=== PATIENT | male | born 1970 | race Caucasian/White ===

== ENCOUNTER 2020-11-08 15:34 | Emergency (ER) | payer OTHER, SELFPAY ==
--- NOTE | 2020-11-08 15:38 | ED.SKABFB ---
HPI - Skin/Abscess/Foreign Bdy General Chief complaint: Skin/Abscess/Foreign Body Stated complaint: spider bite left leg Time Seen by Provider: 11/08/20 15:50 Source: patient and RN notes reviewed Mode of arrival: ambulatory Limitations: no limitations History of Present Illness HPI narrative: 50-year-old male presents the concern for possible spider bite on the of his right leg. Reports he noticed a bump that was tender this afternoon. Reports it has become less red throughout the day. Denies any known contact with the spider or insect. Denies any drainage. Denies any treatment or intervention. Denies fever, body aches, malaise. MD complaint: abscess/boil Related Data Allergies Allergy/AdvReac Type Severity Reaction Status Date / Time ibuprofen Allergy Hives Verified 11/08/20 15:51 Review of Systems Review of Systems: Narrative: CONSTITUTIONAL: Denies malaise, chills, sweats, or fever. SKIN: Reports red bump on the back of his right leg MUSCULOSKELETAL: Denies muscle skeletal pain or myalgia. All systems reviewed & are unremarkable except as noted in HPI and below PMFSH Comments At time of signature, agree with nursing past medical, surgical, social and family history. There is no relevant family history pertinent to the presenting complaint Exam Narrative: Exam Narrative: GENERAL: Well-appearing, well-nourished, and in no acute distress. HEAD: Normocephalic, atraumatic. EYES: PERRLA, conjunctivae clear, and EOMI. ENT: Mucous membranes moist. Oropharynx without edema, erythema or lesions. NECK: Supple. No lymphadenopathy CHEST: Clear to auscultation. No respiratory distress. HEART: Regular rate and rhythm. SKIN: Warm, dry. Erythematous papule with white center noted to the posterior right thigh less than 0.5 cm, surrounded by approximately 1 cm diameter of erythema without edema or induration NEURO: Alert and oriented x3. PSYCH: Normal mood and affect Course Course Emergency Course: Patient is aware of diagnosis, understands and agrees to treatment plan. Anticipatory guidance given. Patient agrees to follow-up as directed and is aware of reasons to seek care at the emergency department. Portions of this record may have been created with voice recognition software Vital Signs Vital signs: Vital Signs Temperature 97.6 F 11/08/20 15:54 Pulse Rate 80 03/17/21 15:54 Respiratory Rate 16 11/08/20 15:54 Blood Pressure 133/81 11/08/20 15:54 Pulse Oximetry 98 11/08/20 15:54 Temperature 97.6 F 11/08/20 15:54 Pulse Rate 80 11/08/20 15:54 Respiratory Rate 16 11/08/20 15:54 Blood Pressure 133/81 11/08/20 15:54 Pulse Oximetry 98 11/08/20 15:54 Reviewed. MDM - Skin/Abscess/Foreign Bdy MDM Narrative Medical decision making narrative: Exam findings show no acute concerns or changes; patient is non-toxic appearing and is in no distress. Patient is appropriate for outpatient treatment and follow-up. Differential Diagnosis Differential diagnosis: Likely abscess of skin or subcutaneous tissue, cellulitis and insect bites Critical Care Time Critical Care Time Critical Care Time: No Discharge Plan Discharge Clinical Impression: Papule of skin Patient Disposition: Home, Self-Care Condition: Stable Instructions: Folliculitis (ED) Additional Instructions: Please follow up with your Primary Care Doctor If symptoms worsen or do not improve. Apply moist heat 3-4 times daily for 10-15 minutes. Take Motrin 400mg every 8 hours with food for pain. If you experience any worsening redness, swelling, streaking (red lines), fever or chills please go to the ER Follow-up/Referrals: Cady,Carol Garza MD [Primary Care Provider] - Time of Disposition: 16:00
[2020-11-08 15:54] VITALS: BP 133/81; PULSE 80; RESP 16; TEMP 36.4; O2SAT 98
== END 2020-11-08 16:02 | disposition home or self-care (01) ==
PROVIDERS: Emergency Provider Nurse Practitioner; PCP Internal Medicine
DX: R23.8 Other skin changes (principal); I10 Essential (primary) hypertension
CPT/HCPCS: 99202; G0463

== ENCOUNTER 2021-03-06 11:19 | Emergency (ER) | payer OTHER, SELFPAY ==
[2021-03-06 11:27] VITALS: BP 150/104; PULSE 69; RESP 16; TEMP 36.4; O2SAT 99
--- NOTE | 2021-03-06 11:33 | PC.NURSE ---
1126- Pt reports he has not taken his medication yet today.
--- NOTE | 2021-03-06 12:30 | ED.GENADULT ---
HPI - General Adult General Chief complaint: Upper Respiratory Infection Stated complaint: Body aches/headache Time Seen by Provider: 03/06/21 11:59 Source: patient and RN notes reviewed Mode of arrival: ambulatory Limitations: no limitations History of Present Illness HPI narrative: Patient presents today complaining of body aches, headache, and fatigue since yesterday. Denies any additional symptoms to include cough, fever, nausea, vomiting, diarrhea, urinary symptoms. He has been vaccinated against COVID-19. He has not tried any [id number] treatment prior to arrival. He does take Tylenol PM at night to help him sleep. complaint: Body aches Related Data Home Medications Medication Instructions Recorded Confirmed losartan 50 mg PO DAILY 03/06/21 03/06/21 Allergies Allergy/AdvReac Type Severity Reaction Status Date / Time ibuprofen Allergy Hives Verified 03/06/21 11:31 Review of Systems Review of Systems: Narrative: CONSTITUTIONAL: Denies fever, chills, or sweats.+ Body aches, fatigue EYES: Denies visual changes, redness, or discharge. ENT: Denies rhinorrhea, congestion, sore throat, or otalgia. CARDIOVASCULAR: Denies chest pain, palpitations, or edema. RESPIRATORY: Denies cough or dyspnea. GASTROINTESTINAL: Denies abdominal pain, nausea, vomiting, or diarrhea. GENITOURINARY: Denies dysuria or hematuria. SKIN: Denies rash, itching, or wounds. MUSCULOSKELETAL: Denies back pain, joint pain, or myalgia. NEUROLOGIC: Denies numbness, tingling, or weakness.+ Headache PSYCH: Denies depression or anxiety. [facility] Social History Social History (Updated 03/06/21 @ 14:44 by Skyla Pate, [facility], ) Smoking status: Current every day smoker Tobacco type: cigars Gender identity (if verbalized by the patient): Male Comments At time of signature, I have reviewed and agree with nursing past medical, surgical, social and family history unless otherwise noted. Please see nursing chart for further information. There is no relevant family history pertinent to the presenting complaint Exam Narrative: Exam Narrative: GENERAL: Well-appearing, well-nourished, and in no acute distress. HEAD: Normocephalic, atraumatic. EYES: EOMI. No redness or drainage. Conjunctivae normal. ENT: Mucous membranes pink and moist. Nares clear. No rhinorrhea. TMs normal bilaterally. Throat normal. Uvula midline. NECK: Normal AROM. Supple. No lymphadenopathy. CHEST: No respiratory distress. Clear to auscultation. HEART: Regular rate and rhythm. No murmur appreciated. Normal peripheral pulses. EXTREMITIES: Normal range of motion. No edema. SKIN: Warm, dry, no rash. Capillary refill normal. Normal skin turgor. NEURO: No focal deficits. Alert and oriented x3. Gait steady. PSYCH: Normal affect. No signs of depression or anxiety. Course Vital Signs Vital signs: Vital Signs Temperature 97.6 F 03/06/21 11:27 Pulse Rate 69 03/06/21 11:27 Respiratory Rate 16 03/06/21 11:27 Blood Pressure 150/104 H 03/06/21 11:27 Pulse Oximetry 99 03/06/21 11:27 Temperature 97.6 F 03/06/21 11:27 Pulse Rate 03/06/21 11:27 Respiratory Rate 16 03/06/21 11:27 Blood Pressure 136/100 H 03/06/21 12:38 Pulse Oximetry 99 03/06/21 11:27 Reviewed. Pt has been instructed to follow up with his PCP regarding his elevated blood pressure today. Medical Decision Making Differential Diagnosis Differential Diagnosis: COVID-19, viral syndrome, influenza Vital Signs Vital Signs: Vital Signs Temperature 97.6 F 03/06/21 11:27 Pulse Rate 03/06/21 11:27 Respiratory Rate 16 03/06/21 11:27 Blood Pressure 150/104 H 03/06/21 11:27 Pulse Oximetry 99 03/06/21 11:27 Temperature 97.6 F 03/06/21 11:27 Pulse Rate 03/06/21 11:27 Respiratory Rate 16 03/06/21 11:27 Blood Pressure 136/100 H 03/06/21 12:38 Pulse Oximetry 99 03/06/21 11:27 Lab Data Lab results reviewed: Yes I reviewed the debra
[2021-03-06 12:38] VITALS: BP 136/100
== END 2021-03-06 12:38 | disposition home or self-care (01) ==
PROVIDERS: Emergency Provider Nurse Practitioner
DX: B34.9 Viral infection, unspecified (principal); Z20.822 Contact with and (suspected) exposure to COVID-19; F17.290 Nicotine dependence, other tobacco product, uncomplicated
CPT/HCPCS: 87426; 99213; C9803; G0463

== ENCOUNTER 2021-04-16 09:45 | Emergency (ER) | payer OTHER, SELFPAY ==
--- NOTE | ~2021-04-16 | XR_ITS ---
EXAMINATION: XR chest 2V DATE: 04/16/2021 11:18 INDICATION: One day of cough TECHNIQUE: PA and lateral views of the chest were obtained. COMPARISON: None FINDINGS: The lungs are clear with no focal airspace opacities, pulmonary edema, pleural effusion or pneumothor ax. The cardiomediastinal silhouette is normal. Visualized bones and soft tissues are unremarkable. IMPRESSION: 1. Normal chest radiograph. Reviewed, dictated and finalized at location B. IMPRESSION: 1. Normal chest radiograph.
[2021-04-16 09:58] VITALS: BP 125/95; PULSE 69; RESP 18; TEMP 36.1; O2SAT 99
--- NOTE | 2021-04-16 10:50 | ED.URI ---
HPI - URI/Sore Throat General Chief Complaint: Upper Respiratory Infection Stated Complaint: COUGH Time Seen by Provider: 04/16/21 10:50 Source: patient and RN notes reviewed Mode of arrival: ambulatory Limitations: no limitations History of Present Illness HPI Narrative: 50-year-old male presents to the [facility] with complaints of a cough. Patient states that nonproductive cough since last night. Started with sinus symptoms about a week ago. Had tried a counter medication with some relief. Denies fevers, chest pain or abdominal pain. States that he was coughing so hard this morning that he did vomit. Patient reports having Covid June 2020, [employer] vaccine couple months ago Related Data Home Medications Medication Instructions Recorded Confirmed losartan 50 mg PO DAILY 03/06/21 03/06/21 Allergies Allergy/AdvReac Type Severity Reaction Status Date / Time ibuprofen Allergy Hives Verified 03/06/21 11:31 Review of Systems Review of Systems: All systems reviewed & are unremarkable except as noted in HPI and below Constitutional: Constitutional: Reports no additional constitutional complaints, Denies chills and Denies fever(s) Eyes: Eyes: Reports no additional eye complaints ENT: Reports as per HPI and Reports nasal congestion (Last week) Cardiovascular: Cardiovascular: Reports no additional cardiovascular complaints and Denies chest pain Respiratory: Respiratory: Reports as per HPI, Reports cough (Last night), Denies dyspnea and Denies wheezing Gastrointestinal: Gastrointestinal: Reports no additional gastrointestinal complaints Musculoskeletal: Musculoskeletal: Reports no additional musculoskeletal complaints Integumentary/Breasts: Skin/Breast: Reports system reviewed and no additional complaints, except as docu Neurologic: Reports system reviewed and no additional complaints, except as documented Psychiatric: Psychiatric: Reports no additional psychiatric complaints Allergic/Immunologic: Allergic/Immunologic: Reports no additional allergic/immunologic complaints [facility] Past Medical History Medical History (Updated 04/19/21 @ 09:25 by Alejandra Hi) Hypertension Surgical History Surgical History (Updated 04/19/21 @ 09:25 by Alejandra Hi) H/O shoulder surgery Left side Social History Social History (Updated 03/06/21 @ 14:44 by Skyla Pate, [facility], ) Smoking status: Current every day smoker Tobacco type: cigars Gender identity (if verbalized by the patient): Male Comments At the time of my signature, I reviewed and agree with the nursing past medical, surgical, social, and family history. There is no relevant family history pertinent to the patient complaint. Exam Const: General: healthy appearing, no acute distress and alert Nutritional Appearance: well nourished Orientation/consciousness: patient oriented x3 Limitations: no limitations HENMT: Head: normal to inspection Eyes: Pupils: Equal, round and reactive pupils present Neck: Neck: normal visual inspection, no lymphadenopathy and no meningeal signs Chest: Chest palpation & inspection: normal inspection of the chest Resp: Effort & Inspection: normal respiratory effort Auscultation: diminished lung sounds bilateral in the lower lung russo Cardio: Rate: regular rate Rhythm: regular rhythm GI: GI Palp: Yes Soft to palpation and No Tenderness to palpation present (GI) Back/Spine/Pelvis: Back: no CVA tenderness Skin: General skin exam: normal color Rashes: no rashes Wounds: no wounds Neuro: General: patient oriented x3, moves all extremities, no meningeal signs and no focal motor deficits Speech: normal speech Gait exam (Neuro): Normal gait present Extrem: General: normal to inspection and no pedal edema Psych: Appearance: grossly normal and well kempt Mental Status: mental status grossly normal Affect: normal affect Attitude: cooperative Thought content: Yes Normal thought content
[2021-04-17 19:41] LABS: SARS-CoV-2 RNA PCR Negative
== END 2021-04-16 11:39 | disposition home or self-care (01) ==
PROVIDERS: Emergency Provider Nurse Practitioner
DX: J40 Bronchitis, not specified as acute or chronic (principal); Z20.822 Contact with and (suspected) exposure to COVID-19; F17.290 Nicotine dependence, other tobacco product, uncomplicated; I10 Essential (primary) hypertension
CPT/HCPCS: 71046; 99213; C9803; G0463; U0003; U0005

== ENCOUNTER 2021-07-12 09:33 | Emergency (ER) | payer OTHER, SELFPAY ==
--- NOTE | 2021-07-12 09:45 | ED.URI ---
HPI - URI/Sore Throat General Chief Complaint: Upper Respiratory Infection Stated Complaint: Cough Time Seen by Provider: 07/12/21 09:49 Source: patient, RN notes reviewed and old records reviewed Mode of arrival: ambulatory Limitations: no limitations History of Present Illness HPI Narrative: 50-year-old male presents to the [facility] with complaints of a cough and sinus issues for the last few days. States he has had increased shortness of breath HX of bronchitis. current smoker. HX of HTN, chronic bronchitis Denies fevers, chest pain, abdominal pain MD elicited complaint: cough Related Data Home Medications Medication Instructions Recorded Confirmed losartan 50 mg PO DAILY 03/06/21 07/12/21 albuterol sulfate 2 inh INHALATION DIRECTED 07/12/21 07/12/21 budesonide-formoterol [Symbicort] 1 inh INHALATION DIRECTED 07/12/21 07/12/21 Allergies Allergy/AdvReac Type Severity Reaction Status Date / Time ibuprofen Allergy Hives Verified 07/12/21 09:50 Review of Systems Review of Systems: All systems reviewed & are unremarkable except as noted in HPI and below Constitutional: Constitutional: Reports no additional constitutional complaints, Denies chills and Denies fever(s) Eyes: Eyes: Reports no additional eye complaints ENT: Reports system reviewed and no additional complaints, except as documented Cardiovascular: Cardiovascular: Reports no additional cardiovascular complaints and Denies chest pain Respiratory: Respiratory: Reports as per HPI, Reports cough and Reports dyspnea Gastrointestinal: Gastrointestinal: Reports no additional gastrointestinal complaints, Denies abdominal pain, Denies nausea and Denies vomiting Musculoskeletal: Musculoskeletal: Reports no additional musculoskeletal complaints Integumentary/Breasts: Skin/Breast: Reports system reviewed and no additional complaints, except as docu Neurologic: Reports system reviewed and no additional complaints, except as documented Psychiatric: Psychiatric: Reports no additional psychiatric complaints Allergic/Immunologic: Allergic/Immunologic: Reports no additional allergic/immunologic complaints PMFSH Past Medical History Medical History Hypertension Surgical History Surgical History H/O shoulder surgery Left side Social History Social History Smoking status: Current every day smoker Tobacco type: cigars Gender identity (if verbalized by the patient): Male Comments At the time of my signature, I reviewed and agree with the nursing past medical, surgical, social, and family history. There is no relevant family history pertinent to the patient complaint. Exam Const: General: no acute distress, alert and ill appearing chronically Nutritional Appearance: well nourished Orientation/consciousness: patient oriented x3 Limitations: no limitations HENMT: Head: normal to inspection Ears: external ears normal, TM's normal bilaterally and EAC's normal Eyes: Pupils: Equal, round and reactive pupils present Neck: Neck: normal visual inspection, no lymphadenopathy and no meningeal signs Chest: Chest palpation & inspection: normal inspection of the chest Resp: Effort & Inspection: normal respiratory effort and no use of accessory muscles Auscultation: no crackles, no rales, no rhonchi, no wheezes and diminished lung sounds bilateral Other: Course, throughout, chronic, smoker's lungs Cardio: Rate: regular rate Rhythm: regular rhythm Back/Spine/Pelvis: Back: no CVA tenderness Skin: General skin exam: normal color Rashes: no rashes Wounds: no wounds Neuro: General: patient oriented x3, moves all extremities, no meningeal signs and no focal motor deficits Speech: normal speech Gait exam (Neuro): Normal gait present Psych: Appearance: grossly normal and well kempt Mental Status: mental
[2021-07-12 09:48] VITALS: BP 130/91; PULSE 71; RESP 16; TEMP 36.8; O2SAT 98
== END 2021-07-12 10:00 | disposition home or self-care (01) ==
PROVIDERS: Emergency Provider Nurse Practitioner; PCP Internal Medicine
DX: J40 Bronchitis, not specified as acute or chronic (principal); F17.290 Nicotine dependence, other tobacco product, uncomplicated; I10 Essential (primary) hypertension
CPT/HCPCS: 99213; G0463